=== PATIENT | female | born 1965 | race African-American/Black ===

== ENCOUNTER 2017-03-11 18:29 | Emergency (ER) | payer OTHER ==
[~2017-03-11] VITALS: Ht 172.7 cm; Wt 70.3 kg
[~2017-03-11 18:29] MED LIST: COZAAR; NORCO 5-325 TA1 EACH PO
[2017-03-11] MEDS ORDERED: LOSARTAN-HCTZ1 EAC1 PO (18:50)
[2017-03-11] MEDS ORDERED: UNICOMPLEX M TA1 TA1 PO (18:50)
[2017-03-11] MEDS ORDERED: FISH OIL 1,001000 M2 PO (18:50)
[2017-03-11] MEDS ORDERED: HYDROCODONE-AP1 EAC6 PO (18:54)
[2017-03-11] MEDS ORDERED: MOBIC7.5 MG PO ×2 (18:54→18:58)
[2017-03-11 20:00] VITALS: BP 139/96
== END 2017-03-11 20:00 | disposition home or self-care (01) ==
LOC: ER 18:29
DX: S82.831A Other fracture of upper and lower end of right fibula, initial encounter for closed fracture (principal); I10 Essential (primary) hypertension; G35 Multiple sclerosis; W18.39XA Other fall on same level, initial encounter; Y93.01 Activity, walking, marching and hiking; Y92.89 Other specified places as the place of occurrence of the external cause; Y99.8 Other external cause status

== ENCOUNTER 2018-06-18 04:43 | Inpatient (IN) | payer OTHER ==
[~2018-06-18] VITALS: Ht 175.3 cm; Wt 75.3 kg
--- NOTE | ~2018-06-18 | EKG ---
[address] [address] ELECTROCARDIOGRAM REPORT Name: WAYNE YENCHARLENE Franky Room #: 418-P [facility] IN M.R.#: [id number] Admission: 06/18/18 Attend Phys: Wild Nuñez MD Discharge: Date of : 61 Report #: [id number] THIS REPORT FOR: //name// [facility] ED Test Date: 2018-06-18 Test Time: 04:58:22 Pat Name: SANDRO YEN Department: Room: [facility] Gender: F Tmd Teacher: SRIKANTH : 1965 Requested By: Helen Willoughby Order Number: [id number] MD: Franklin Gayle Measurements Intervals [place] Rate: 77 P: 48 WY: 161 QRS: 58 QRSD: 86 T: 43 QT: 406 QTc: 460 Interpretive Statements Sinus rhythm Normal tracing Compared to ECG 08/11/2017 09:06:18 No significant changes Electronically Signed On 06-18-2018 8:32:52 CDT by Franklin Gayle [email or web address] <ELECTRONICALLY SIGNED> By: Franklin Gayle MD, [facility] 06/18/18 0832 7 7 Franklin Gayle MD, [facility] /EPI
--- NOTE | ~2018-06-18 | 2DMMODE ---
[facility] [address] [place] [address] 2 D/M-MODE ECHOCARDIOGRAM Name: YOVANAWAYNECHARLENE Franky Room #: 418-P ADM IN M.R.#: [id number] Admission: 06/18/18 Attend Phys: Wild Nuñez, Discharge: Date of : 61 Date of Service: 06/19/18 1052 Report #: [id number] THIS REPORT FOR: //name// APPROVED REPORT Study performed: 06/19/2018 09:41:16 EXAM: Comprehensive 2D, Doppler, and color-flow Echocardiogram Patient Location: Echo lab Room #: 418 Status: routine BSA: 1.91 HR: 79 bpm BP: 129/90 mmHg Rhythm: NSR Other Information Study Quality: Good Indications Snycope. Hx: HTN, Raynauds Echo Enhancing Agent Indication: Rule out Shunt Agent(s) / Amount(s) Used: Agitated Saline 10 cc 2D Dimensions RVDd: 25.48 mm IVSd: 9.88 (7-11mm) LVOT Diam: 20.20 (18-24mm) LVDd: 41.90 mm PWd: 9.60 (7-11mm) Ascending Ao: 34.12 (22-36mm) LVDs: 24.89 (25-40mm) Aortic Root: 33.53 mm Volumes Left Atrial Volume (Systole) Single Plane 4CH: 39.86 mL Single Plane 2CH: 46.42 mL LA ESV Index: 24.00 mL/m2 Aortic Valve AoV Peak Gentry.: 1.53 m/s AO Peak Gr.: 9.41 mmHg LVOT Max P.84 mmHg LVOT Max V: 1.21 m/s DEMI Vmax: 2.52 cm2 [facility] [address] [place] [address] 2 D/M-MODE ECHOCARDIOGRAM Name: SANDRO YEN Room #: 418-P [facility]#: [id number] Admission: 06/18/18 Attend Phys: Wild Nuñez, Discharge: Date of : 61 Date of Service: 06/19/18 1052 Report #: [id number] Mitral Valve E/A Ratio: 1.2 MV Decel. Time: 195.17 ms MV E Max Gentry.: 0.92 m/s MV A Gentry.: 0.75 m/s MV PHT: 56.60 ms IVRT: 86.51 ms Pulmonary Valve PV Peak Gentry.: 1.06 m/s PV Peak Gr.: 4.49 mmHg Pulmonary Vein P Vein S: 0.66 m/s P Vein D: 0.38 m/s P Vein S/D Ratio: 1.74 Tricuspid Valve TR Peak Gentry.: 2.06 m/s RAP Estimate: 5.00 mmHg TR Peak Gr.: 16.98 mmHg PA Pressure: 21.00 mmHg Left Ventricle The left ventricle is normal size. There is normal LV segmental wall motion. There is normal left ventricular wall thickness. Left ventricular systolic function is normal. LVEF is 60-65%. Moderate diastolic dysfunction is present (pseudonormal filling). Right Ventricle The right ventricle is normal size. The right ventricular systolic function is normal. Atria The left atrium size is normal. Atrial septal aneurysm is present. with possibility of early bubbles crossing septum but a suboptimal study The right atrium size is normal. Aortic Valve The aortic valve is normal in structure. No aortic regurgitation is present. There is no aortic valvular stenosis. Mitral Valve The mitral valve is normal in structure. Trace mitral regurgitation. No evidence of mitral valve stenosis. Tricuspid Valve The tricuspid valve is normal in structure. Trace tricuspid [facility] [address] [place] [address] 2 D/M-MODE ECHOCARDIOGRAM Name: SANDRO YEN Room #: 418-P [facility] IN [facility]#: [id number] Admission: 06/18/18 Attend Phys: Wild Nuñez, Discharge: Date of : 61 Date of Service: 06/19/18 1052 Report #: [id number] regurgitation. Estimated PAP is 20-25mmHg. Pulmonic Valve Pulmonic valve is not well visualized. Great Vessels The aortic root is normal in size. The ascending aorta is normal in size. IVC is normal in size and collapses >50% with inspiration. Pericardium There is no pericardial effusion. <Conclusion> The left ventricle is normal size. LVEF is 60-65%. The right ventricle is normal size. The left atrium size is normal. The right atrium size is normal. The aortic valve is normal in structure. The mitral valve is normal in structure. Trace mitral regurgitation. The tricuspid valve is normal in structure. Trace tricuspid regurgitation. Estimated PAP is 20-25mmHg. Pulmonic valve is not well visualized. There is no pericardial effusion. Atrial septal aneurysm is present. with possibility of early bubbles crossing septum but a suboptimal study <ELECTRONICALLY SIGNED> By: Lambert Saldivar MD 06/19/18 105 51 51 Lambert Saldivar MD /INF
[~2018-06-18 04:43] MED LIST changes: +FISH OIL 1,001000 M2 PO; +HYDROCODONE-AP1 EAC6 PO; +LOSARTAN-HCTZ1 EAC1 PO; +MOBIC7.5 MG PO; +PREDNISONE 20 M20 MG PO; +PROAIR HFA8.5 GM INH; +TUSSIONEX PENN115 ML PO; +UNICOMPLEX M TA1 TA1 PO
[2018-06-18 04:44] VITALS: BP 110/63
[2018-06-18 05:04] LABS: HEMATOCRIT 35.1 % (37.0-47.0); HEMOGLOBIN 11.8 gm/dL (12.0-15.0); MCH 28.3 pg (26.0-34.0); MCHC 33.5 g/dL (28.0-37.0); MCV 84.4 fL (80.0-100.0); RBC 4.16 mil/uL (4.20-5.00); WBC 3.6 thou/uL (4.0-11.0)
[2018-06-18 05:13] LABS: ANION GAP 6 mmol/L (7-16); BUN 12 mg/dL (7-18); CALCIUM 9.4 mg/dL (8.5-10.1); CHLORIDE 106 mmol/L (98-107); CO2 29 mmol/L (21-32); CREATININE 0.9 mg/dL (0.6-1.0); GLUCOSE 108 mg/dL (74-106); POTASSIUM 3.3 mmol/L (3.5-5.1); SODIUM 141 mmol/L (136-145)
[2018-06-18 05:22] LABS: ALBUMIN 3.3 g/dL (3.4-5.0); SGOT 27 U/L (15-37); SGPT 23 U/L (30-65); TOTAL BILIRUBIN 0.3 mg/dL (<0.1-1.0); TOTAL PROTEIN 7.8 g/dL (6.4-8.2); TROPONIN-I <0.06 ng/mL (<0.06)
[2018-06-18 05:47] VITALS: BP 117/84
[2018-06-18 06:15] VITALS: BP 115/83
[2018-06-18 06:56] VITALS: BP 126/89
[2018-06-18 16:33] VITALS: BP 125/91
[2018-06-18 19:40] VITALS: BP 112/83
[2018-06-19 04:12] VITALS: BP 134/77
[2018-06-19 05:49] LABS: ABSOLUTE NEUTROPHILS 1.6 thou/uL (1.4-8.2); BASOPHILS 0.6 % (0.0-2.0); EOSINOPHILS 2.8 % (0.0-3.0); HEMATOCRIT 31.2 % (37.0-47.0); HEMOGLOBIN 10.5 gm/dL (12.0-15.0); LYMPHOCYTES 40.5 % (24.0-44.0); MCH 28.3 pg (26.0-34.0); MCHC 33.7 g/dL (28.0-37.0); MONOCYTES 11.9 % (1.0-8.0); PLATELET COUNT 201 thou/uL (150-400); POLYS 44.2 % (36.0-66.0); RBC 3.72 mil/uL (4.20-5.00); RDW 15.2 % (10.5-14.5); WBC 3.6 thou/uL (4.0-11.0)
[2018-06-19 06:00] LABS: CALCIUM 9.2 mg/dL (8.5-10.1); CREATININE 0.8 mg/dL (0.6-1.0); MAGNESIUM 1.9 mg/dL (1.8-2.4); POTASSIUM 3.8 mmol/L (3.5-5.1)
[2018-06-19 07:14] VITALS: BP 129/90
[2018-06-19] MEDS ORDERED: COZAAR 25 MG TA25 M2 PO (11:03)
[2018-06-19 16:21] VITALS: BP 129/90
== END 2018-06-19 16:49 | disposition home or self-care (01) | DRG 605 ==
LOC: ER 04:43 → 4E 05:39 → EROBS 05:39 → 4E 06:25
PROVIDERS: Nurse Practitioner; Student in an Organized Health Care Education/Training Program
DX: S01.01XA Laceration without foreign body of scalp, initial encounter (principal); F25.0 Schizoaffective disorder, bipolar type; I10 Essential (primary) hypertension; E87.6 Hypokalemia; G35 Multiple sclerosis; W18.39XA Other fall on same level, initial encounter; Y93.89 Activity, other specified; Y92.89 Other specified places as the place of occurrence of the external cause; Y99.8 Other external cause status
CPT/HCPCS: 10183

== ENCOUNTER → 2019-08-30 | Outpatient (CLI) | payer OTHER ==
[~2019-08-30] MED LIST changes: +COZAAR 25 MG TA25 M2 PO
== END ==
LOC: RAD 09:20
DX: Z12.31 Encounter for screening mammogram for malignant neoplasm of breast (principal)

== ENCOUNTER → 2019-09-03 | Outpatient (CLI) | payer OTHER | LOC: ULTRA 11:28 | DX: N63.20 Unspecified lump in the left breast, unspecified quadrant (principal); R59.1 Generalized enlarged lymph nodes; Z88.1 Allergy status to other antibiotic agents ==

== ENCOUNTER → 2021-03-06 | Outpatient (CLI) | payer OTHER | LOC: BC 09:37 | PROVIDERS: ATTEND Family Medicine | DX: Z12.31 Encounter for screening mammogram for malignant neoplasm of breast (principal) ==